=== PATIENT | male | born 1965 | race Caucasian/White ===

== ENCOUNTER 2023-04-18 18:03 | Inpatient (IN) | payer BC ==
[~2023-04-18 18:03] MED LIST: Iopamidol-370 76% 500 ML MDV (1 ML CHARGE) ONE
[2023-04-18] MEDS ORDERED: fentaNYL 50 mcg/mL 1 mL Vial ONE ×3 (18:13→19:26)
[2023-04-18 19:23] LABS: #Basophils 0.1 thou/uL (0.0-0.2); #Eosinphils 0.2 thou/uL (0.0-0.7); #Monocytes 1.3 thou/uL (0.11-0.59); #Neutrophils 8.4 thou/uL (1.40-6.50); %Basophils 0.4 % (0.0-1.0); %Eosinophils 1.3 % (0.0-10.0); %Lymphocytes 24.2 % (21.0-51.0); %Monocytes 9.6 % (0.0-10.0); Hematocrit 42.2 % (42.0-52.0); Hemoglobin 14.8 g/dL (14.0-18.0); Mean Corpuscular HGB CONC 35.1 g/dL (32.0-36.0); Mean Corpuscular Hemoglobin 31.6 pg (27.0-31.0); Mean Corpuscular Volume 90.2 fl (78.0-98.0); Mean Platelet Volume 9.3 fL (7.4-10.4); Platelet Count 262 10x3/uL (130-400); RBC Distribution Width 11.9 % (11.5-14.5); Red Blood Cell (RBC) Count 4.68 mill/uL (4.70-6.10); White Blood Cell (WBC) Count 13.1 10x3/uL (4.8-10.8)
[2023-04-18 19:36] LABS: INR-International Normal Ratio 0.9; Prothrombin Time 11.9 sec (12.0-14.7)
[2023-04-18 19:37] LABS: PTT 51.4 sec (22.9-36.1)
[2023-04-18 19:39] LABS: ALT (SGPT) 40 U/L (8-55); AST (SGOT) 99 U/L (5-34); Albumin 3.5 g/dL (3.5-5.0); Alkaline Phosphatase 57 U/L (40-110); Anion Gap 13 mmol/L (10-20); BUN (Urea Nitrogen) 19 mg/dL (8.4-25.7); Bilirubin, Total 0.3 mg/dL (0.2-1.2); Calc. Creatinine Clearance 0 mL/min (70-130); Calcium 8.3 mg/dL (7.8-10.44); Carbon Dioxide 21 mmol/L (22-29); Chloride 100 mmol/L (98-107); Estimated GFR 103; Globulin 2.4 g/dL (2.4-3.5); Glucose 290 mg/dL (70-105); Potassium 3.8 mmol/L (3.5-5.1); Protein, Total 5.9 g/dL (6.0-8.3); Sodium 130 mmol/L (136-145)
[2023-04-18 19:51] LABS: Critical Call Chem Troponin I NUR.LH12@1950; Troponin I 7.577 ng/mL (< 0.028)
[2023-04-18] MEDS ORDERED: Acetaminophen 325 MG (10.15 ML) UDCUP PO PRN (21:29)
[2023-04-18] MEDS ORDERED: Acetaminophen 650 MG Suppository PR PRN (21:29)
[2023-04-18] MEDS ORDERED: Ondansetron PF 4 MG/2 ML Vial IVP PRN (21:29)
[2023-04-18] MEDS ORDERED: Electrolyte Replacement Protocol 1 EACH IVPB PRN (21:29)
[2023-04-18] MEDS ORDERED: Senokot S 8.6-50 MG TAB PO PRN (21:31)
[2023-04-18] MEDS ORDERED: Dextrose 50% Abboject 50 ML SYRINGE SLOW IVP PRN (21:46)
[2023-04-18] MEDS ORDERED: Glucagon 1 MG/ML KIT IM PRN (21:46)
[2023-04-18] MEDS ORDERED: Dextrose 5% in Water 1,000 ML IV PRN (21:46)
[2023-04-18] MEDS: Morphine 4 MG/ML VIAL SLOW IVP SCH (22:25)
[2023-04-18] MEDS: Lactated Ringer's 1,000 ML IV SCH (22:39)
[2023-04-18] MEDS: HumaLOG 300 UNITS/3 ML VIAL SC PRN (22:53)
[2023-04-18] MEDS: Morphine 4 MG/ML VIAL ONE (22:53)
[2023-04-18 23:00] LABS: Hematocrit 44.2 % (42.0-52.0); Hemoglobin 15.6 g/dL (14.0-18.0); Platelet Count 260 10x3/uL (130-400)
[2023-04-18 23:21] LABS: Magnesium 2.1 mg/dL (1.6-2.6)
[2023-04-18 23:28] LABS: Critical Call Chem Troponin I ICU.RH3@2328; Troponin I 9.478 ng/mL (< 0.028)
[2023-04-18] MEDS: Heparin 10,000 UNITS/ 10 ML VIAL SLOW IVP SCH (23:46)
[2023-04-19] MEDS ORDERED: Atropine Sulfate 1 mg/10 ml Syringe ONE (01:58)
[2023-04-19] MEDS ORDERED: fentaNYL 50 mcg/mL 1 mL Vial ONE (01:58)
[2023-04-19] MEDS ORDERED: Midazolam HCl 2 mg/2 ml Vial ONE ×2 (01:58→03:12)
[2023-04-19] MEDS ORDERED: Lidocaine 1% (PF) 30 ML VIAL ONE (01:58)
[2023-04-19] MEDS ORDERED: Heparin 10,000 UNITS/ 10 ML VIAL ONE (01:58)
[2023-04-19] MEDS ORDERED: Verapamil 5 MG/2 ML VIAL ONE (01:59)
[2023-04-19] MEDS ORDERED: Nitroglycerin 50 MG/250 ML BOT 250 ML ONE (01:59)
[2023-04-19] MEDS ORDERED: Communication Order-Pharmacy FS SCH (02:00)
[2023-04-19] MEDS ORDERED: Morphine 4 MG/ML VIAL ONE (03:25)
[2023-04-19] MEDS: HumaLOG 300 UNITS/3 ML VIAL SC PRN (05:10)
[2023-04-19 05:44] LABS: #Basophils 0.1 thou/uL (0.0-0.2); #Eosinphils 0.2 thou/uL (0.0-0.7); #Monocytes 1.5 thou/uL (0.11-0.59); #Neutrophils 9.6 thou/uL (1.40-6.50); %Basophils 0.6 % (0.0-1.0); %Eosinophils 1.2 % (0.0-10.0); %Lymphocytes 17.7 % (21.0-51.0); %Monocytes 10.7 % (0.0-10.0); %Neutrophils 69.4 % (42.0-75.0); Hematocrit 42.5 % (42.0-52.0); Hemoglobin 14.6 g/dL (14.0-18.0); Mean Corpuscular HGB CONC 34.4 g/dL (32.0-36.0); Mean Corpuscular Hemoglobin 30.9 pg (27.0-31.0); Mean Corpuscular Volume 89.9 fl (78.0-98.0); Mean Platelet Volume 9.5 fL (7.4-10.4); Platelet Count 231 10x3/uL (130-400); RBC Distribution Width 11.9 % (11.5-14.5); Red Blood Cell (RBC) Count 4.73 mill/uL (4.70-6.10); White Blood Cell (WBC) Count 13.8 10x3/uL (4.8-10.8)
[2023-04-19] MEDS: Morphine 2 MG/ML VIAL SLOW IVP PRN ×3 (05:58→09:31)
[2023-04-19] MEDS: Nitroglycerin 50 MG/250 ML BOT 250 ML IVPB SCH (05:58)
[2023-04-19 06:04] LABS: Anion Gap 11 mmol/L (10-20); BUN (Urea Nitrogen) 14 mg/dL (8.4-25.7); Calc. Creatinine Clearance 147 mL/min (70-130); Calcium 8.4 mg/dL (7.8-10.44); Carbon Dioxide 23 mmol/L (22-29); Cardiac Risk 5.8 (Less than 4.5); Chloride 100 mmol/L (98-107); Cholesterol 207 mg/dl (< 200 Desired); Estimated GFR 106; Glucose 292 mg/dL (70-105); HDL Cholesterol 36 mg/dL (>60 Neg Risk); LDL Cholesterol, Calculated 112 mg/dL; Potassium 3.8 mmol/L (3.5-5.1); Sodium 130 mmol/L (136-145); Triglycerides 294 mg/dL (Less than 150)
[2023-04-19] MEDS: Sodium Chloride 0.9% 1,000 ML IV SCH (06:08)
[2023-04-19 06:16] LABS: Critical Call Chem Troponin I REHAB.JMB@0616; Troponin I 22.747 ng/mL (< 0.028)
[2023-04-19] MEDS: Famotidine/PF 20 mg/2ml Vial SLOW IVP SCH (09:04)
[2023-04-19] MEDS: Insulin Glargine 30 UNITS/0.3 ML VIAL SC SCH (09:05)
[2023-04-19] MEDS: Aspirin Chewable 81 MG TAB PO SCH (09:09)
[2023-04-19] MEDS: Heparin 25,000 units/D5W 500 ML IVPB SCH (10:03)
[2023-04-19] MEDS ORDERED: Iopamidol 370 76% 100 ML VIAL ONE (12:05)
[2023-04-19] MEDS: Atorvastatin Calcium 40 MG TAB PO SCH (20:42)
[2023-04-20 02:13] LABS: #Basophils 0.1 thou/uL (0.0-0.2); #Eosinphils 0.2 thou/uL (0.0-0.7); #Monocytes 1.7 thou/uL (0.11-0.59); #Neutrophils 7.7 thou/uL (1.40-6.50); %Basophils 0.6 % (0.0-1.0); %Eosinophils 1.4 % (0.0-10.0); %Lymphocytes 18.3 % (21.0-51.0); %Monocytes 14.4 % (0.0-10.0); %Neutrophils 64.8 % (42.0-75.0); Hematocrit 36.5 % (42.0-52.0); Hemoglobin 12.7 g/dL (14.0-18.0); Mean Corpuscular HGB CONC 34.8 g/dL (32.0-36.0); Mean Corpuscular Hemoglobin 31.6 pg (27.0-31.0); Mean Corpuscular Volume 90.8 fl (78.0-98.0); Mean Platelet Volume 9.5 fL (7.4-10.4); Platelet Count 200 10x3/uL (130-400); Red Blood Cell (RBC) Count 4.02 mill/uL (4.70-6.10); White Blood Cell (WBC) Count 11.9 10x3/uL (4.8-10.8)
[2023-04-20 02:58] LABS: ALT (SGPT) 44 U/L (8-55); AST (SGOT) 105 U/L (5-34); Albumin 3.1 g/dL (3.5-5.0); Alkaline Phosphatase 49 U/L (40-110); Anion Gap 10 mmol/L (10-20); BUN (Urea Nitrogen) 8 mg/dL (8.4-25.7); Bilirubin, Total 0.5 mg/dL (0.2-1.2); Calc. Creatinine Clearance 160 mL/min (70-130); Calcium 7.9 mg/dL (7.8-10.44); Carbon Dioxide 25 mmol/L (22-29); Chloride 101 mmol/L (98-107); Estimated GFR 109; Globulin 2.2 g/dL (2.4-3.5); Glucose 164 mg/dL (70-105); Potassium 3.7 mmol/L (3.5-5.1); Protein, Total 5.3 g/dL (6.0-8.3); Sodium 132 mmol/L (136-145)
[2023-04-20] MEDS: HumaLOG 300 UNITS/3 ML VIAL SC PRN (06:29)
[2023-04-20] MEDS: Morphine 4 MG/ML VIAL SLOW IVP PRN (13:25)
[2023-04-20] MEDS: Enoxaparin 100 MG (1 mL) SYRINGE SC SCH (20:46)
[2023-04-20 23:23] LABS: Hematocrit 34.2 % (42.0-52.0); Hemoglobin 11.5 g/dL (14.0-18.0); Platelet Count 182 10x3/uL (130-400)
[2023-04-21 03:53] LABS: #Basophils 0.1 thou/uL (0.0-0.2); #Eosinphils 0.1 thou/uL (0.0-0.7); #Monocytes 1.5 thou/uL (0.11-0.59); %Basophils 0.5 % (0.0-1.0); %Eosinophils 0.7 % (0.0-10.0); %Lymphocytes 15.8 % (21.0-51.0); %Monocytes 14.3 % (0.0-10.0); %Neutrophils 68.4 % (42.0-75.0); Hematocrit 34.7 % (42.0-52.0); Hemoglobin 11.9 g/dL (14.0-18.0); Mean Corpuscular HGB CONC 34.3 g/dL (32.0-36.0); Mean Corpuscular Hemoglobin 31.7 pg (27.0-31.0); Mean Corpuscular Volume 92.5 fl (78.0-98.0); Mean Platelet Volume 9.6 fL (7.4-10.4); Platelet Count 187 10x3/uL (130-400); RBC Distribution Width 12.2 % (11.5-14.5); Red Blood Cell (RBC) Count 3.75 mill/uL (4.70-6.10); White Blood Cell (WBC) Count 10.2 10x3/uL (4.8-10.8)
[2023-04-21 04:14] LABS: Anion Gap 9 mmol/L (10-20); BUN (Urea Nitrogen) 5 mg/dL (8.4-25.7); Calc. Creatinine Clearance 178 mL/min (70-130); Calcium 8.1 mg/dL (7.8-10.44); Carbon Dioxide 24 mmol/L (22-29); Chloride 104 mmol/L (98-107); Estimated GFR 111; Glucose 73 mg/dL (70-105); Potassium 3.4 mmol/L (3.5-5.1); Sodium 134 mmol/L (136-145)
[2023-04-21] MEDS: Potassium Chloride 20 MEQ TAB PO SCH (06:36)
[2023-04-21] MEDS: FLU VACC QS2023-24(6MOS UP)/PF 60 MCG/0.5 ML SYRINGE IM ONE (08:20)
[2023-04-21 12:04] LABS: Potassium 3.7 mmol/L (3.5-5.1)
[2023-04-21] MEDS ORDERED: Communication Order-Pharmacy FS PRN (15:00)
[2023-04-21 15:08] LABS: Critical Call Chem Troponin I RESULT DECREASING; Troponin I 19.732 ng/mL (< 0.028)
[2023-04-22] MEDS ORDERED: CEFAZOLIN 2 GM in Sodium Chloride 0.9% 100 ML IVPB SCH (04:00)
[2023-04-22 05:19] LABS: #Eosinphils 0.1 thou/uL (0.0-0.7); #Monocytes 1.5 thou/uL (0.11-0.59); #Neutrophils 6.9 thou/uL (1.40-6.50); %Basophils 0.3 % (0.0-1.0); %Eosinophils 0.9 % (0.0-10.0); %Lymphocytes 14.6 % (21.0-51.0); %Monocytes 15.2 % (0.0-10.0); %Neutrophils 68.6 % (42.0-75.0); Hematocrit 38.4 % (42.0-52.0); Hemoglobin 12.7 g/dL (14.0-18.0); Mean Corpuscular HGB CONC 33.1 g/dL (32.0-36.0); Mean Corpuscular Hemoglobin 30.7 pg (27.0-31.0); Mean Corpuscular Volume 92.8 fl (78.0-98.0); Mean Platelet Volume 9.9 fL (7.4-10.4); Platelet Count 223 10x3/uL (130-400); RBC Distribution Width 12.2 % (11.5-14.5); Red Blood Cell (RBC) Count 4.14 mill/uL (4.70-6.10)
[2023-04-22 05:39] LABS: Anion Gap 11 mmol/L (10-20); BUN (Urea Nitrogen) 7 mg/dL (8.4-25.7); Calc. Creatinine Clearance 164 mL/min (70-130); Calcium 8.9 mg/dL (7.8-10.44); Carbon Dioxide 25 mmol/L (22-29); Chloride 103 mmol/L (98-107); Estimated GFR 108; Glucose 137 mg/dL (70-105); Potassium 3.7 mmol/L (3.5-5.1); Sodium 135 mmol/L (136-145)
[2023-04-22] MEDS: Lactated Ringer's 1,000 ML IV SCH ×2 (06:20→17:23)
[2023-04-22] MEDS: Metoprolol Tartrate 25 MG TAB PO SCH (07:59)
[2023-04-22] MEDS ORDERED: Norepinephrine 4 MG/4 ML VIAL ONE (09:15)
[2023-04-22] MEDS ORDERED: Rocuronium Bromide 10 MG/ML (10ML VIAL) ONE ×2 (09:15→14:09)
[2023-04-22] MEDS ORDERED: PHENYLEPHRINE-NS 100 MCG/ML 10 ML SYRINGE ONE ×4 (09:15→16:06)
[2023-04-22] MEDS ORDERED: CEFAZOLIN 1 GM VIAL ONE (09:15)
[2023-04-22] MEDS ORDERED: Lidocaine 2% PF 100 mg/5 ml Syringe ONE ×2 (09:15→12:50)
[2023-04-22] MEDS ORDERED: Sodium Chloride 0.9% 250 ML 250 ML ONE (09:15)
[2023-04-22] MEDS ORDERED: Lidocaine 2% PF 5 ML VIAL ONE (09:15)
[2023-04-22] MEDS ORDERED: ePHEDrine Sulfate 50 MG/10 ML VIAL ONE (09:16)
[2023-04-22] MEDS ORDERED: Fentanyl 250 MCG/5 ML VIAL ONE (09:16)
[2023-04-22] MEDS ORDERED: PROPOFOL 20 ML ONE (09:16)
[2023-04-22] MEDS ORDERED: Midazolam HCl 2 mg/2 ml Vial ONE (09:16)
[2023-04-22] MEDS ORDERED: Albumin 5% 500 ML ONE (10:40)
[2023-04-22] MEDS ORDERED: CEFAZOLIN 1 GM VIAL SLOW IVP SCH (12:00)
[2023-04-22] MEDS ORDERED: Heparin 10,000 UNITS/1 ML VIAL 30,000 UNITS in Sodium Chloride 0.9% 1,000 ML FS SCH (12:45)
[2023-04-22] MEDS ORDERED: Protamine Sulfate 250 MG/25 ML VIAL ONE (12:50)
[2023-04-22] MEDS ORDERED: Aminocaproic Acid 5 GM/20 ML VIAL ONE (12:50)
[2023-04-22] MEDS ORDERED: Magnesium 5 GM/10 ML VIAL ONE (12:50)
[2023-04-22] MEDS ORDERED: Thrombin 5000 UNITS/5 ML VIAL ONE (12:50)
[2023-04-22] MEDS ORDERED: Papaverine 60 MG/2 ML VIAL ONE (12:50)
[2023-04-22] MEDS ORDERED: Heparin 30,000 units/30 ml VIAL ONE (12:50)
[2023-04-22] MEDS ORDERED: Mannitol 12.5 GM/50 ML ONE (12:50)
[2023-04-22] MEDS ORDERED: Vancomycin 1 GM VIAL ONE (12:50)
[2023-04-22] MEDS ORDERED: Calcium Chloride 1 GM/10 ML Abboject SYRINGE ONE (12:50)
[2023-04-22] MEDS ORDERED: Cardioplegic Soln 1,000 ML BAG ONE (12:50)
[2023-04-22] MEDS ORDERED: Potassium Chloride 60 mEq (30 mL) VIAL ONE (12:50)
[2023-04-22] MEDS ORDERED: Sodium Bicarb 50 mEq/50 ML VIAL ONE (12:50)
[2023-04-22] MEDS ORDERED: Albuterol HFA (OR) 200 PUFF INH ONE (12:50)
[2023-04-22] MEDS ORDERED: Heparin 5,000 UNITS/ML VIAL ONE (12:50)
[2023-04-22] MEDS ORDERED: Heparin 10,000 UNITS/ 10 ML VIAL ONE (13:29)
[2023-04-22] MEDS: Lidocaine 1% (PF) 30 ML VIAL ONE (13:40)
[2023-04-22] MEDS: Insulin Regular 300 UNITS/3 ML VIAL SC PRN (16:45)
[2023-04-22 16:51] LABS: Actual Bicarbonate (HCO3a) 20.5 mEq/L (22-28); Base Excess (BEa) -7.4 mEq/L (-2.0 to +3.0); CO2 Tension 51.5 mmHg (35.0-45.0); Calcium, Ionized (arterial) 1.17 mmol/L (1.12-1.30); Hematocrit-ABG 36 % (42.0-52.0); Hemoglobin (Hb) 12.2 g/dL (14.0-18.0); O2 Tension (PaO2), arterial 94.5 mmHg (80.0-100.0); Potassium - ABG Lab 3.88 mmol/L (3.70-5.30); pH, Arterial 7.217 (7.35-7.45)
[2023-04-22 16:52] LABS: Puncture Site Arterial Line
[2023-04-22 16:53] LABS: ALV-art Gradient 268.925 mmHg (0-20)
[2023-04-22] MEDS ORDERED: Bisacodyl 5 MG TAB PO PRN (16:57)
[2023-04-22] MEDS ORDERED: Ipratropium/Albuterol 3 ML NEB NEB PRN (16:57)
[2023-04-22] MEDS ORDERED: Nitroglycerin 50 MG/250 ML BOT 250 ML IVPB PRN (16:57)
[2023-04-22] MEDS ORDERED: DOPamine 400 MG/D5W 250 ML 250 ML IVPB PRN (16:57)
[2023-04-22] MEDS ORDERED: Morphine 2 MG/ML VIAL SLOW IVP PRN (16:57)
[2023-04-22] MEDS ORDERED: Post-Op Insulin Drip Protocol IVPB SCH (16:57)
[2023-04-22] MEDS ORDERED: Promethazine HCl 25 MG/ML VIAL IM PRN (16:57)
[2023-04-22] MEDS ORDERED: Ondansetron PF 4 MG/2 ML Vial IVP PRN (16:57)
[2023-04-22] MEDS ORDERED: NOREPINEPHRINE 8 MG/250 ML-D5W 250 ML IVPB PRN (16:57)
[2023-04-22] MEDS ORDERED: niCARdipine 25 MG in Sodium Chloride 0.9% 250 ML 250 ML IVPB PRN (16:57)
[2023-04-22] MEDS ORDERED: Albumin 5% 12.5 GM (250 mL) BOT IVPB PRN (16:57)
[2023-04-22] MEDS ORDERED: Hetastarch 6% 500 ML 500 ML IVPB PRN (16:57)
[2023-04-22] MEDS ORDERED: hydrALAZINE 20 MG/ML VIAL SLOW IVP PRN (16:57)
[2023-04-22] MEDS ORDERED: Bisacodyl 10 MG SUPP PR PRN (16:57)
[2023-04-22] MEDS ORDERED: Mag-Al 1200 mg/1200 mg/30 ML UDCUP PO PRN (16:57)
[2023-04-22] MEDS ORDERED: Guaifenesin DM 100-10/5 ML UDCUP PO PRN (16:57)
[2023-04-22] MEDS ORDERED: Acetaminophen 325 MG TAB PO PRN (16:57)
[2023-04-22 17:02] LABS: #Basophils 0.1 thou/uL (0.0-0.2); #Eosinphils 0.1 thou/uL (0.0-0.7); #Monocytes 2.5 thou/uL (0.11-0.59); #Neutrophils 13.1 thou/uL (1.40-6.50); %Basophils 0.3 % (0.0-1.0); %Eosinophils 0.6 % (0.0-10.0); %Lymphocytes 10.8 % (21.0-51.0); %Monocytes 13.7 % (0.0-10.0); %Neutrophils 72.1 % (42.0-75.0); Hematocrit 35.7 % (42.0-52.0); Hemoglobin 11.7 g/dL (14.0-18.0); Mean Corpuscular HGB CONC 32.8 g/dL (32.0-36.0); Mean Corpuscular Hemoglobin 31.5 pg (27.0-31.0); Platelet Count 179 10x3/uL (130-400); RBC Distribution Width 12.2 % (11.5-14.5); Red Blood Cell (RBC) Count 3.71 mill/uL (4.70-6.10); White Blood Cell (WBC) Count 18.1 10x3/uL (4.8-10.8)
[2023-04-22 17:04] LABS: Mean Corpuscular Volume 96.2 fl (78.0-98.0)
[2023-04-22] MEDS: NOREPINEPHRINE 8 MG/250 ML-D5W 0 ML ONE (17:11)
[2023-04-22] MEDS: fentaNYL 50 mcg/mL 1 mL Vial ONE (17:11)
[2023-04-22] MEDS: Albumin 5% 500 ML ONE (17:11)
[2023-04-22] MEDS: Albumin 5% 12.5 GM (250 mL) BOT IVPB PRN (17:11)
[2023-04-22 17:12] LABS: Anion Gap 12 mmol/L (10-20); BUN (Urea Nitrogen) 9 mg/dL (8.4-25.7); Calc. Creatinine Clearance 182 mL/min (70-130); Calcium 7.8 mg/dL (7.8-10.44); Carbon Dioxide 22 mmol/L (22-29); Chloride 109 mmol/L (98-107); Estimated GFR 112; Glucose 129 mg/dL (70-105); Potassium 3.9 mmol/L (3.5-5.1); Sodium 139 mmol/L (136-145)
[2023-04-22] MEDS: fentaNYL 50 mcg/mL 1 mL Vial SLOW IVP PRN ×2 (17:12→17:22)
[2023-04-22] MEDS ORDERED: Glucagon 1 MG/ML KIT SC PRN (17:15)
[2023-04-22] MEDS ORDERED: Dextrose 5% in Water 1,000 ML IV PRN (17:15)
[2023-04-22] MEDS ORDERED: HUMULIN R 100 UNITS in Sodium Chloride 0.9% 100 ML IVPB SCH (17:15)
[2023-04-22] MEDS ORDERED: Dextrose 50% Abboject 50 ML SYRINGE SLOW IVP PRN (17:15)
[2023-04-22] MEDS: Morphine 4 MG/ML VIAL ONE (17:16)
[2023-04-22] MEDS: CEFAZOLIN 2 GM in Sodium Chloride 0.9% 100 ML IVPB SCH (17:18)
[2023-04-22] MEDS: Ketorolac Tromethamine 30 MG (1 mL) VIAL IVP SCH (17:18)
[2023-04-22 17:20] LABS: INR-International Normal Ratio 1.3; PTT 32.6 sec (22.9-36.1)
[2023-04-22] MEDS: Ipratropium/Albuterol 3 ML NEB NEB SCH (18:21)
[2023-04-22 18:37] LABS: Base Excess (BEa) -6.5 mEq/L (-2.0 to +3.0); CO2 Tension 37.8 mmHg (35.0-45.0); Calcium, Ionized (arterial) 1.13 mmol/L (1.12-1.30); Hematocrit-ABG 33 % (42.0-52.0); Hemoglobin (Hb) 11.3 g/dL (14.0-18.0); Potassium - ABG Lab 3.72 mmol/L (3.70-5.30); pH, Arterial 7.319 (7.35-7.45)
[2023-04-22 18:45] LABS: Puncture Site Arterial Line
[2023-04-22] MEDS: Potassium Chloride 20 MEQ (100 mL) BAG IVPB PRN (19:56)
[2023-04-22] MEDS: Atorvastatin Calcium 20 MG TAB PO SCH (21:29)
[2023-04-22] MEDS: Famotidine/PF 20 mg/2ml Vial SLOW IVP SCH (21:29)
[2023-04-22] MEDS: HYDROcodone/Acetaminophen 5/325 mg Tablet PO PRN (21:31)
[2023-04-22 22:56] LABS: Hematocrit 31.2 % (42.0-52.0); Hemoglobin 10.2 g/dL (14.0-18.0)
[2023-04-22 23:16] LABS: Potassium 4.2 mmol/L (3.5-5.1)
[2023-04-23 00:18] LABS: Magnesium 1.9 mg/dL (1.6-2.6)
[2023-04-23 04:10] LABS: #Monocytes 1.3 thou/uL (0.11-0.59); #Neutrophils 6.7 thou/uL (1.40-6.50); %Basophils 0.2 % (0.0-1.0); %Eosinophils 0.2 % (0.0-10.0); %Lymphocytes 10.3 % (21.0-51.0); %Monocytes 14.3 % (0.0-10.0); %Neutrophils 74.4 % (42.0-75.0); Hematocrit 31.1 % (42.0-52.0); Hemoglobin 10.1 g/dL (14.0-18.0); Mean Corpuscular HGB CONC 32.5 g/dL (32.0-36.0); Mean Corpuscular Hemoglobin 31.1 pg (27.0-31.0); Mean Corpuscular Volume 95.7 fl (78.0-98.0); Mean Platelet Volume 10.5 fL (7.4-10.4); Platelet Count 163 10x3/uL (130-400); RBC Distribution Width 12.3 % (11.5-14.5); Red Blood Cell (RBC) Count 3.25 mill/uL (4.70-6.10)
[2023-04-23 04:37] LABS: Anion Gap 9 mmol/L (10-20); BUN (Urea Nitrogen) 9 mg/dL (8.4-25.7); Calc. Creatinine Clearance 159 mL/min (70-130); Carbon Dioxide 23 mmol/L (22-29); Chloride 107 mmol/L (98-107); Estimated GFR 107; Glucose 189 mg/dL (70-105); Potassium 3.9 mmol/L (3.5-5.1); Sodium 135 mmol/L (136-145)
[2023-04-23] MEDS: Magnesium Oxide 400 MG TAB PO SCH (07:50)
[2023-04-23] MEDS: Polyethylene Glycol 3350 17 GM Packet PO SCH (07:50)
[2023-04-23] MEDS: Aspirin Chewable 81 MG TAB PO SCH (07:50)
[2023-04-23] MEDS: Alogliptin 25 MG TAB PO SCH (18:19)
[2023-04-23] MEDS: Insulin Glargine 30 UNITS/0.3 ML VIAL SC PRN (20:44)
[2023-04-24 04:21] LABS: #Eosinphils 0.1 thou/uL (0.0-0.7); #Monocytes 1.9 thou/uL (0.11-0.59); #Neutrophils 6.3 thou/uL (1.40-6.50); %Basophils 0.4 % (0.0-1.0); %Eosinophils 0.6 % (0.0-10.0); %Lymphocytes 17.9 % (21.0-51.0); %Monocytes 18.6 % (0.0-10.0); %Neutrophils 61.9 % (42.0-75.0); Hematocrit 31.2 % (42.0-52.0); Hemoglobin 10.3 g/dL (14.0-18.0); Mean Corpuscular Hemoglobin 30.7 pg (27.0-31.0); Mean Corpuscular Volume 93.1 fl (78.0-98.0); Mean Platelet Volume 10.3 fL (7.4-10.4); Platelet Count 175 10x3/uL (130-400); RBC Distribution Width 12.1 % (11.5-14.5); Red Blood Cell (RBC) Count 3.35 mill/uL (4.70-6.10); White Blood Cell (WBC) Count 10.1 10x3/uL (4.8-10.8)
[2023-04-24 05:08] LABS: Anion Gap 8 mmol/L (10-20); BUN (Urea Nitrogen) 12 mg/dL (8.4-25.7); Calc. Creatinine Clearance 151 mL/min (70-130); Calcium 8.3 mg/dL (7.8-10.44); Carbon Dioxide 26 mmol/L (22-29); Chloride 106 mmol/L (98-107); Estimated GFR 105; Glucose 195 mg/dL (70-105); Potassium 3.6 mmol/L (3.5-5.1); Sodium 136 mmol/L (136-145)
[2023-04-24] MEDS: Alogliptin 25 MG TAB PO SCH (08:35)
[2023-04-24] MEDS: metFORMIN 500 MG TAB PO SCH ×2 (08:43→17:13)
[2023-04-24] MEDS ORDERED: Artificial Tear Sol 15 ML BOT EA EYE PRN (10:09)
[2023-04-24] MEDS ORDERED: Nitroglycerin 0.4 MG TAB (25 Tab Bottle) SL PRN (10:09)
[2023-04-24] MEDS ORDERED: Mineral Oil ENEMA PR PRN (10:09)
[2023-04-24] MEDS ORDERED: Glucagon 1 MG/ML KIT SC PRN (10:15)
[2023-04-24] MEDS ORDERED: Dextrose 50% Abboject 50 ML SYRINGE SLOW IVP PRN (10:15)
[2023-04-24] MEDS ORDERED: HUMULIN R 100 UNITS in Sodium Chloride 0.9% 100 ML IVPB SCH (10:15)
[2023-04-24] MEDS ORDERED: Dextrose 5% in Water 1,000 ML IV PRN (10:15)
[2023-04-24] MEDS: Furosemide 40 MG (4 mL) VIAL SLOW IVP SCH ×2 (10:21→14:05)
[2023-04-24] MEDS: Furosemide 40 MG (4 mL) VIAL ONE (10:22)
[2023-04-24] MEDS: Insulin Glargine 30 UNITS/0.3 ML VIAL SC SCH (13:22)
[2023-04-24] MEDS: Insulin Regular 300 UNITS/3 ML VIAL SC PRN (16:19)
[2023-04-24] MEDS: Potassium Chloride 20 MEQ TAB PO SCH (17:13)
[2023-04-24] MEDS: Famotidine 20 MG TAB PO SCH (20:15)
[2023-04-25] MEDS: fentaNYL 50 mcg/mL 1 mL Vial SLOW IVP SCH (03:15)
[2023-04-25 05:20] LABS: #Eosinphils 0.2 thou/uL (0.0-0.7); #Monocytes 1.3 thou/uL (0.11-0.59); #Neutrophils 5.9 thou/uL (1.40-6.50); %Basophils 0.4 % (0.0-1.0); %Lymphocytes 23.3 % (21.0-51.0); %Monocytes 13.6 % (0.0-10.0); %Neutrophils 60.1 % (42.0-75.0); Hematocrit 31.2 % (42.0-52.0); Hemoglobin 10.2 g/dL (14.0-18.0); Mean Corpuscular HGB CONC 32.7 g/dL (32.0-36.0); Mean Corpuscular Hemoglobin 30.9 pg (27.0-31.0); Mean Corpuscular Volume 94.5 fl (78.0-98.0); Mean Platelet Volume 10.3 fL (7.4-10.4); Platelet Count 205 10x3/uL (130-400); White Blood Cell (WBC) Count 9.7 10x3/uL (4.8-10.8)
[2023-04-25 06:32] LABS: Anion Gap 9 mmol/L (10-20); BUN (Urea Nitrogen) 17 mg/dL (8.4-25.7); Calc. Creatinine Clearance 151 mL/min (70-130); Calcium 8.7 mg/dL (7.8-10.44); Carbon Dioxide 28 mmol/L (22-29); Chloride 104 mmol/L (98-107); Estimated GFR 104; Glucose 180 mg/dL (70-105); Potassium 4.3 mmol/L (3.5-5.1); Sodium 137 mmol/L (136-145)
[2023-04-25] MEDS: Insulin Glargine 30 UNITS/0.3 ML VIAL SC SCH (09:04)
[2023-04-25] MEDS: Metolazone 5 MG TAB PO SCH (12:22)
[2023-04-25] MEDS: fentaNYL 50 mcg/mL 1 mL Vial SLOW IVP PRN (13:22)
[2023-04-25] MEDS: HYDROcodone/Acetaminophen 5/325 mg Tablet PO PRN (15:02)
[2023-04-25] MEDS: Metoprolol Tartrate 25 MG TAB PO SCH (20:42)
[2023-04-25] MEDS ORDERED: Metoprolol Tartrate 25 MG TAB PO SCH (21:00)
[2023-04-26 10:26] VITALS: BMI 32.3
[2023-04-28 08:20] LABS: Analyzer IN Cardio OR; Base Excess (BEa) -1.6 mEq/L (-2.0 to +3.0); CO2 Tension 49.9 mmHg (35.0-45.0); Calcium, Ionized (arterial) 1.17 mmol/L (1.12-1.30); Carboxyhemoglobin (COHb) 0.5 gm% (0.0-3.0); Hematocrit-ABG 34 % (42.0-52.0); Hemoglobin (Hb) 11.7 g/dL (14.0-18.0); O2 Tension (PaO2), arterial 238.8 mmHg (80.0-100.0); Potassium - ABG Lab 3.57 mmol/L (3.70-5.30); pH, Arterial 7.317 (7.35-7.45)
[2023-04-28 08:21] LABS: Actual Bicarbonate (HCO3a) 22.9 mEq/L (22-28); Analyzer IN Cardio OR; CO2 Tension 44.8 mmHg (35.0-45.0); Calcium, Ionized (arterial) 1.03 mmol/L (1.12-1.30); Carboxyhemoglobin (COHb) 0.1 gm% (0.0-3.0); Hematocrit-ABG 29 % (42.0-52.0); Hemoglobin (Hb) 9.9 g/dL (14.0-18.0); O2 Tension (PaO2), arterial 286.2 mmHg (80.0-100.0); Potassium - ABG Lab 3.67 mmol/L (3.70-5.30); pH, Arterial 7.327 (7.35-7.45)
[2023-04-28 08:21] LABS: Actual Bicarbonate (HCO3a) 23.5 mEq/L (22-28); Analyzer IN Cardio OR; Base Excess (BEa) -3.6 mEq/L (-2.0 to +3.0); CO2 Tension 52.8 mmHg (35.0-45.0); Calcium, Ionized (arterial) 1.12 mmol/L (1.12-1.30); Carboxyhemoglobin (COHb) 0.6 gm% (0.0-3.0); Hematocrit-ABG 30 % (42.0-52.0); Hemoglobin (Hb) 10.1 g/dL (14.0-18.0); O2 Tension (PaO2), arterial 253.9 mmHg (80.0-100.0); Potassium - ABG Lab 3.93 mmol/L (3.70-5.30); pH, Arterial 7.267 (7.35-7.45)
[2023-04-28 08:21] LABS: Actual Bicarbonate (HCO3a) 23.9 mEq/L (22-28); Analyzer IN Cardio OR; CO2 Tension 45.6 mmHg (35.0-45.0); Calcium, Ionized (arterial) 1.13 mmol/L (1.12-1.30); Carboxyhemoglobin (COHb) 0.1 gm% (0.0-3.0); Hematocrit-ABG 35 % (42.0-52.0); Hemoglobin (Hb) 11.9 g/dL (14.0-18.0); O2 Tension (PaO2), arterial 267.6 mmHg (80.0-100.0); Potassium - ABG Lab 3.68 mmol/L (3.70-5.30); pH, Arterial 7.338 (7.35-7.45)
[2023-04-28 08:22] LABS: Actual Bicarbonate (HCO3a) 21.6 mEq/L (22-28); Analyzer IN Cardio OR; Base Excess (BEa) -4.9 mEq/L (-2.0 to +3.0); CO2 Tension 46.1 mmHg (35.0-45.0); Calcium, Ionized (arterial) 1.19 mmol/L (1.12-1.30); Carboxyhemoglobin (COHb) 0.4 gm% (0.0-3.0); Hematocrit-ABG 28 % (42.0-52.0); Hemoglobin (Hb) 9.6 g/dL (14.0-18.0); O2 Tension (PaO2), arterial 316.4 mmHg (80.0-100.0); Potassium - ABG Lab 3.74 mmol/L (3.70-5.30); pH, Arterial 7.288 (7.35-7.45)
[2023-04-28 08:22] LABS: Actual Bicarbonate (HCO3a) 22.8 mEq/L (22-28); Analyzer IN Cardio OR; Base Excess (BEa) -3.9 mEq/L (-2.0 to +3.0); CO2 Tension 49.6 mmHg (35.0-45.0); Calcium, Ionized (arterial) 1.09 mmol/L (1.12-1.30); Carboxyhemoglobin (COHb) 0.3 gm% (0.0-3.0); Hematocrit-ABG 30 % (42.0-52.0); Hemoglobin (Hb) 10.1 g/dL (14.0-18.0); O2 Tension (PaO2), arterial 161.1 mmHg (80.0-100.0); Potassium - ABG Lab 4.09 mmol/L (3.70-5.30); pH, Arterial 7.281 (7.35-7.45)
[2023-04-28 08:23] LABS: Puncture Site Arterial Line
[2023-04-28 08:23] LABS: Puncture Site Arterial Line
[2023-04-28 08:24] LABS: Puncture Site Arterial Line
[2023-04-28 08:24] LABS: Puncture Site Arterial Line
[2023-04-28 08:24] LABS: Puncture Site Arterial Line
[2023-04-28 08:25] LABS: Puncture Site Arterial Line
[2023-04-28 16:31] VITALS: BP 126/71; TEMP 97.8
== END 2023-04-28 17:20 | disposition home or self-care (01) | DRG 231 ==
LOC: ERS 18:03 → CCU 21:36 → 2NO 04-24 19:39
PROVIDERS: ADMIT Student in an Organized Health Care Education/Training Program; ATTEND Internal Medicine
PROC: 4A023N7 Measurement of Cardiac Sampling and Pressure, Left Heart, Percutaneous Approach (ICD-10-PCS; principal; 2023-04-19)
PROC: B2111ZZ Fluoroscopy of Multiple Coronary Arteries using Low Osmolar Contrast (ICD-10-PCS; 2023-04-19)
PROC: B2151ZZ Fluoroscopy of Left Heart using Low Osmolar Contrast (ICD-10-PCS; 2023-04-19)
PROC: 02100Z9 Bypass Coronary Artery, One Artery from Left Internal Mammary, Open Approach (ICD-10-PCS; 2023-04-22)
PROC: 021209W Bypass Coronary Artery, Three Arteries from Aorta with Autologous Venous Tissue, Open Approach (ICD-10-PCS; 2023-04-22)
PROC: 06BQ4ZZ Excision of Left Saphenous Vein, Percutaneous Endoscopic Approach (ICD-10-PCS; 2023-04-22)
PROC: 02L70CK Occlusion of Left Atrial Appendage with Extraluminal Device, Open Approach (ICD-10-PCS; 2023-04-22)
PROC: 5A1221Z Performance of Cardiac Output, Continuous (ICD-10-PCS; 2023-04-22)
PROC: 4A133R1 Monitoring of Arterial Saturation, Peripheral, Percutaneous Approach (ICD-10-PCS; 2023-04-22)
PROC: 3E033XZ Introduction of Vasopressor into Peripheral Vein, Percutaneous Approach (ICD-10-PCS; 2023-04-22)
PROC: 30233J1 Transfusion of Nonautologous Serum Albumin into Peripheral Vein, Percutaneous Approach (ICD-10-PCS; 2023-04-22)
PROC: 02703ZZ Dilation of Coronary Artery, One Artery, Percutaneous Approach (ICD-10-PCS; 2023-04-22)
DX: I21.4 Non-ST elevation (NSTEMI) myocardial infarction (principal); J96.01 Acute respiratory failure with hypoxia; I50.32 Chronic diastolic (congestive) heart failure; F17.210 Nicotine dependence, cigarettes, uncomplicated; I25.10 Atherosclerotic heart disease of native coronary artery without angina pectoris; E11.65 Type 2 diabetes mellitus with hyperglycemia; E78.00 Pure hypercholesterolemia, unspecified; Z79.899 Other long term (current) drug therapy; Z71.6 Tobacco abuse counseling; Z90.49 Acquired absence of other specified parts of digestive tract; Z98.890 Other specified postprocedural states; Z79.4 Long term (current) use of insulin; Z79.84 Long term (current) use of oral hypoglycemic drugs
CPT/HCPCS: 36415; 36416; 36430; 71045; 71275; 80048; 80053; 80061; 82805; 83036; 83735; 84484; 85025; 85347; 85610; 85730; 86850; 86900; 86901; 92920; 93005; 93010; 93306; 93458; 93798; 94002; 94150; 94640; 94760; 96365; 96366; 96375; 96376; 99152; 99153; A4311; A4648; C1725; C1751; C1769; C1887; C1889; C1894; J0461; J0690; J1644; J1650; J1815; J1885; J1940; J2001; J2150; J2250; J2270; J2272; J2440; J2704; J2720; J3010; J3370; J3475; J3480; J3490; J7050; J7120; J7620; P9045; Q9967; S0017; S0028